=== PATIENT | male | born 1970 | race Caucasian/White ===

== ENCOUNTER 2016-09-25 10:20 | Day surgery (SDC) | payer BC ==
[~2016-09-25 10:20] MED LIST: PROPOFOL INJ 200 MG/20 ML VIAL IV ONE
[2016-09-25] MEDS ORDERED: PROPOFOL INJ 200 MG/20 ML VIAL IV ONE (11:13)
[2016-09-25 12:06] VITALS: BP 123/80
--- NOTE | 2016-09-25 12:21 | Operative Report ---
Operative Report DATE OF SURGERY: 09/25/16 Operative Report: The risks, benefits and alternatives of the procedure including risks of bleeding, perforation requiring surgery are explained to the patient detail and informed consent is obtained. Patient is brought back to the endoscopy suite. He is placed in a left lateral decubital position. Timeout is called. Propofol medications administered. A rectal examination was done which did not reveal any masses, tears or fissures. An Olympus video scope was inserted into the patient's rectum. The scope was then carefully advanced all the way to the cecum. The cecum as identified by the usual anatomical landmarks of the ileocecal valve as well as the appendiceal office. Photodocumentation is obtained. Prep is good. Scope was then sequentially pulled back via the various segments of the colon including the ascending colon, hepatic flexure, transverse colon, splenic flexure, descending colon and finally into the rectosigmoid portions of the colon. Retroflexion maneuvers performed. Following this patient's stretcher was turned around and an EGD is performed. The risks benefits and alternatives of the procedure explained to the patient in detail and informed consent is obtained that GIF Olympus video scope was inserted into the patient's mouth and hypopharynx the esophagus is identified intubated and insufflated the scope was then advanced through the esophagus stomach and duodenum retroflexion maneuver is done the esophagus stomach and first and second portions of the duodenum examined PREOPERATIVE DIAGNOSIS: Personal history of polyp. Gastroesophageal reflux disease POSTOPERATIVE DIAGNOSIS: Diverticulosis. Internal hemorrhoids. Le's esophagus that required ablation. Duodenitis. Gastritis status post biopsy rule out Helicobacter pylori OPERATION: EGD with ablation. EGD with biopsy. Colonoscopy diagnostic SURGEON: JACOB IRVIN ANESTHESIA: LMAC TISSUE REMOVED OR ALTERED: Gastric specimen obtained rule out Helicobacter pylori COMPLICATIONS: None. ESTIMATED BLOOD LOSS: none. INTRAOPERATIVE FINDINGS: Short segment Le's esophagus status post ablation. Gastritis. Duodenitis. Diverticulosis. Internal hemorrhoids PROCEDURE: Patient tolerated procedure well. No immediate postprocedure complications are noted. Patient is discharged in good condition. Discharge date 09/25/2016. Discharge diet: Regular. Discharge activity: Regular. Patient is instructed to call the office or proceed to the emergency room should there be any further problems or questions. Patient does have a 2-3 week follow-up to discuss findings. Surveillance colonoscopy in 5 years. High-fiber diet for his diverticulosis to reduce the risk of diverticulitis. [id number] medications for his internal hemorrhoids. Surveillance EGD needed in 1 year We'll await biopsies treat for Helicobacter pylori if necessary.
== END 2016-09-25 12:20 | disposition home or self-care (01) ==
LOC: END 10:20
PROVIDERS: ATTEND Internal Medicine Gastroenterology
PROC: 0DB68ZX Excision of Stomach, Via Natural or Artificial Opening Endoscopic, Diagnostic (ICD-10-PCS; principal; 2016-09-25 13:30)
PROC: 0D558ZZ Destruction of Esophagus, Via Natural or Artificial Opening Endoscopic (ICD-10-PCS; 2016-09-25 13:30)
PROC: 0DJD8ZZ Inspection of Lower Intestinal Tract, Via Natural or Artificial Opening Endoscopic (ICD-10-PCS; 2016-09-25 13:30)
DX: K22.70 Barrett's esophagus without dysplasia (principal); K29.80 Duodenitis without bleeding; K29.50 Unspecified chronic gastritis without bleeding; K21.9 Gastro-esophageal reflux disease without esophagitis; K57.30 Diverticulosis of large intestine without perforation or abscess without bleeding; K64.8 Other hemorrhoids; Z86.010 Personal history of colon polyps; Z79.899 Other long term (current) drug therapy
CPT/HCPCS: 43270; 43239; 45378; 88342 ×2; 88305 ×2; J2704; 740

== ENCOUNTER 2016-12-05 18:01 | Emergency (ER) | payer BC ==
[2016-12-05] MEDS ORDERED: PROMETHAZINE HCL 25 MG TABLET PO ONE (18:22)
[2016-12-05] MEDS ORDERED: NORMAL SALINE 1000 ML 1,000 ML IV PRN (18:22)
[2016-12-05] MEDS ORDERED: ONDANSETRON HCL INJ/PF 4 MG/2 ML SDV IV ONE (18:22)
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
[2016-12-05 19:05] LABS: PROTHROMBIN TIME 14.2 SEC (11.4-15.4)
[2016-12-05 19:07] LABS: ABSOLUTE LYMPHOCYTES (AUTO) 1.2 10^3/uL (0.5-4.7); ABSOLUTE MONOCYTES (AUTO) 0.8 10^3/uL (0.1-1.4); ABSOLUTE NEUT (AUTO) 2.4 10^3/uL (1.7-8.2); BASOPHILS % (AUTO) 0.6 % (0-2); EOSINOPHILS % (AUTO) 0.1 % (0-6); HEMATOCRIT 41.7 % (37.9-51.0); HEMOGLOBIN 14.6 g/dL (13.5-17.0); HGB HCT DIFFERENCE 2.1; LYMPHOCYTES % (AUTO) 27.2 % (13-45); MEAN CORPUSCULAR VOLUME 94 fl (80-97); RED BLOOD COUNT 4.43 10^6/uL (4.35-5.55); RED CELL DISTRIBUTION WIDTH 14.9 % (11.5-14.0); SEGMENTED NEUTROPHILS % (AUTO) 53.1 % (42-78); WHITE BLOOD COUNT 4.5 10^3/uL (4.0-10.5)
[2016-12-05 19:22] LABS: ALANINE AMINOTRANSFERASE 47 U/L (21-72); ALBUMIN 4.9 g/dL (3.5-5.0); ALKALINE PHOSPHATASE 70 U/L (38-126); ANION GAP 19 (5-19); ASPARTATE AMINO TRANSFERASE 54 U/L (17-59); BILIRUBIN,DIRECT 0.4 mg/dL (0.0-0.4); BILIRUBIN,TOTAL 0.8 mg/dL (0.2-1.3); BLOOD UREA NITROGEN 23 mg/dL (7-20); CALCIUM 10.2 mg/dL (8.4-10.2); CARBON DIOXIDE 24 mmol/L (22-30); CHLORIDE 99 mmol/L (98-107); CREATINE KINASE 129 U/L (55-170); CREATININE RESULT 1.19 mg/dL (0.52-1.25); GLUCOSE 85 mg/dL (75-110); POTASSIUM 3.7 mmol/L (3.6-5.0); SODIUM 142.4 mmol/L (137-145); TOTAL PROTEIN 8.4 g/dL (6.3-8.2)
[2016-12-05 19:34] LABS: CREATINE KINASE MB 5.65 ng/mL (<4.55)
[2016-12-05 19:39] LABS: TROPONIN I 1.32 ng/mL
[2016-12-05] MEDS ORDERED: HEPARIN SOD (PORCINE) 1,000 UNIT/ML 10 ML VIAL IV PRN (21:07)
[2016-12-05] MEDS ORDERED: HEPARIN SODIUM,PORCINE/D5W 250 ML IV PRN (21:07)
[2016-12-05] MEDS ORDERED: HEPARIN SOD (PORCINE) 1,000 UNIT/ML 10 ML VIAL IV ONE (21:07)
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
[2016-12-05] MEDS ORDERED: ATORVASTATIN CALCIUM 80 MG TABLET PO ONE (21:29)
[2016-12-05] MEDS ORDERED: ASPIRIN 325 MG TABLET PO ONE (21:29)
[2016-12-05] MEDS ORDERED: ACETAMINOPHEN 325 MG TABLET PO ONE (22:22)
[2016-12-05 22:36] VITALS: BP 130/84
--- NOTE | 2016-12-06 08:18 | EKG REPORT ---
SEVERITY:- OTHERWISE NORMAL ECG - SINUS TACHYCARDIA : Confirmed by: Reymundo Medina MD 06-Dec-2016 08:18:06
== END 2016-12-05 23:39 | disposition short-term general hospital (02) ==
LOC: ER 18:01
DX: I21.4 Non-ST elevation (NSTEMI) myocardial infarction (principal); R00.0 Tachycardia, unspecified; R50.81 Fever presenting with conditions classified elsewhere; R06.02 Shortness of breath; R07.9 Chest pain, unspecified
CPT/HCPCS: 93005; 96376; 99291; 96361; 96375; 96365; 96366; 36415; 82553; 82550; 85025; 85610; 80053; 84484; 71010; 71275; 93010; J1644 ×2; J2405; J7030

== ENCOUNTER → 2017-08-30 | Outpatient (CLI) | payer BC ==
--- NOTE | 2017-08-30 17:00 | RADIOLOGY REPORT (SQ) ---
EXAM DESCRIPTION: KNEE LEFT 4 VIEWS COMPLETED DATE/TIME: 08/30/2017 4:53 pm REASON FOR STUDY: PAIN IN LEFT KNEE M25.562 PAIN IN LEFT KNEE COMPARISON: None. NUMBER OF VIEWS: Four views. TECHNIQUE: AP, lateral, and both oblique radiographic images acquired of the left knee. LIMITATIONS: None. FINDINGS: MINERALIZATION: Normal. BONES: No acute fracture or dislocation. No worrisome bone lesions. JOINT: No effusion. SOFT TISSUES: No soft tissue swelling. No radio-opaque foreign body. OTHER: No other significant finding. IMPRESSION: NEGATIVE STUDY OF THE LEFT KNEE. NO RADIOGRAPHIC EVIDENCE OF ACUTE INJURY. TECHNICAL DOCUMENTATION: JOB ID: [id number] [employer]- All Rights Reserved
== END ==
LOC: OD 16:30
PROVIDERS: ATTEND Family Medicine
DX: M25.562 Pain in left knee (principal)

== ENCOUNTER → 2019-02-21 | Outpatient (CLI) | payer OTHER ==
[2019-02-21 10:06] LABS: HEMATOCRIT 42.1 % (37.9-51.0); HEMOGLOBIN 14.3 g/dL (13.5-17.0); MEAN CORPUSCULAR HEMOGLOBIN 32.4 pg (27.0-33.4); MEAN CORPUSCULAR HGB CONC 33.9 g/dL (32.0-36.0); MEAN CORPUSCULAR VOLUME 96 fl (80-97); PLATELET COUNT 252 10^3/uL (150-450); RED BLOOD COUNT 4.41 10^6/uL (4.35-5.55); RED CELL DISTRIBUTION WIDTH 14.7 % (11.5-14.0); WHITE BLOOD COUNT 5.8 10^3/uL (4.0-10.5)
[2019-02-21 10:31] LABS: ANION GAP 10 (5-19); BLOOD UREA NITROGEN 20 mg/dL (7-20); CALCIUM 9.3 mg/dL (8.4-10.2); CARBON DIOXIDE 26 mmol/L (22-30); CHLORIDE 104 mmol/L (98-107); GLUCOSE 86 mg/dL (75-110); POTASSIUM 4.2 mmol/L (3.6-5.0); SODIUM 140.3 mmol/L (137-145)
--- NOTE | 2019-02-21 13:46 | EKG REPORT ---
SEVERITY:- NORMAL ECG - SINUS RHYTHM : Confirmed by: Reymundo Medina MD 21-Feb-2019 13:46:04
== END ==
LOC: OD 09:02
PROVIDERS: ATTEND Surgery
DX: Z01.818 Encounter for other preprocedural examination (principal); K64.2 Third degree hemorrhoids; Z86.010 Personal history of colon polyps; K22.70 Barrett's esophagus without dysplasia; K58.9 Irritable bowel syndrome, unspecified; G25.81 Restless legs syndrome; G44.009 Cluster headache syndrome, unspecified, not intractable
CPT/HCPCS: 36415; 80048; 85027; 93005; 93010

== ENCOUNTER 2019-06-06 12:40 | Day surgery (SDC) | payer OTHER ==
[2019-06-02 13:30] LABS: ABSOLUTE EOSINOPHILS # (AUTO) 0.1 10^3/uL (0.0-0.6); ABSOLUTE MONOCYTES (AUTO) 0.7 10^3/uL (0.1-1.4); ABSOLUTE NEUT (AUTO) 3.9 10^3/uL (1.7-8.2); BASOPHILS % (AUTO) 0.7 % (0-2); EOSINOPHILS % (AUTO) 1.7 % (0-6); HEMATOCRIT 39.4 % (37.9-51.0); HEMOGLOBIN 13.3 g/dL (13.5-17.0); LYMPHOCYTES % (AUTO) 29.4 % (13-45); MEAN CORPUSCULAR HEMOGLOBIN 31.8 pg (27.0-33.4); MEAN CORPUSCULAR HGB CONC 33.7 g/dL (32.0-36.0); MEAN CORPUSCULAR VOLUME 95 fl (80-97); MONOCYTES % (AUTO) 10.8 % (3-13); PLATELET COUNT 252 10^3/uL (150-450); RED BLOOD COUNT 4.17 10^6/uL (4.35-5.55); RED CELL DISTRIBUTION WIDTH 14.6 % (11.5-14.0); SEGMENTED NEUTROPHILS % (AUTO) 57.4 % (42-78); TOTAL CELLS COUNTED % (AUTO) 100 %; WHITE BLOOD COUNT 6.8 10^3/uL (4.0-10.5)
[2019-06-02 14:00] LABS: ANION GAP 6 (5-19); BLOOD UREA NITROGEN 15 mg/dL (7-20); CALCIUM 9.6 mg/dL (8.4-10.2); CARBON DIOXIDE 32 mmol/L (22-30); CHLORIDE 103 mmol/L (98-107); GLUCOSE 81 mg/dL (75-110); POTASSIUM 4.7 mmol/L (3.6-5.0)
[~2019-06-06 12:40] MED LIST changes: +ACETAMINOPHEN 1,000 MG/100 ML RTUPB IV ONE; +ACETAMINOPHEN 1,000 MG/100 ML RTUPB IV PRN; +IBUPROFEN 800 MG in NORMAL SALINE 250 ML IV PRN; +LACTATED RINGERS 1000 ML IV PRN; +LIDOCAINE 0.5% INJ-PF (5 MG/ML) 50 ML SDV SUBCUT PRN; +METRONIDAZOLE 500 MG/NS RTU 500 MG/100 ML RTUPB IV ONE; +METRONIDAZOLE 500 MG/NS RTU 500 MG/100 ML RTUPB IV PRN; -PROPOFOL INJ 200 MG/20 ML VIAL IV ONE
[2019-06-06] MEDS ORDERED: FAMOTIDINE INJ/PF 20 MG/2 ML SDV IV ONE ×2 (14:28→14:41)
[2019-06-06] MEDS ORDERED: MIDAZOLAM 2 MG/2 ML INJ ONE ×2 (14:28→15:46)
[2019-06-06] MEDS ORDERED: MIDAZOLAM 2 MG/2 ML INJ IV ONE (14:41)
[2019-06-06] MEDS ORDERED: HYDROMORPHONE HCL INJ/PF 2 MG/ML AMPULE ONE (15:13)
[2019-06-06] MEDS ORDERED: HYDROMORPHONE HCL INJ/PF 2 MG/ML AMPULE INJ ONE (15:15)
[2019-06-06] MEDS ORDERED: RINGERS SOLUTION,LACTATED 1,000 ML IV ONE (15:30)
[2019-06-06] MEDS ORDERED: PROPOFOL INJ 200 MG/20 ML VIAL IV ONE (15:46)
[2019-06-06] MEDS ORDERED: ONDANSETRON HCL INJ/PF 4 MG/2 ML SDV ONE (15:46)
[2019-06-06] MEDS ORDERED: FENTANYL CITRATE INJ/PF 100 MCG/2 ML AMPUL ONE (15:46)
[2019-06-06] MEDS ORDERED: DIPHENHYDRAMINE HCL 50 MG/ML VIAL IV PRN (16:17)
[2019-06-06] MEDS ORDERED: MORPHINE SULFATE 10 MG/ML INJ IV PRN (16:17)
[2019-06-06] MEDS ORDERED: MEPERIDINE HCL/PF INJ 25 MG/1 ML DISP.SYRIN IV PRN (16:17)
[2019-06-06] MEDS ORDERED: PROMETHAZINE HCL INJ 25 MG/1 ML VIAL IV PRN (16:17)
[2019-06-06] MEDS ORDERED: FENTANYL CITRATE INJ/PF 100 MCG/2 ML AMPUL IV PRN ×3 (16:17)
[2019-06-06] MEDS ORDERED: BACITRACIN ZINC OINTMENT 15 GM ONE (16:29)
[2019-06-06] MEDS ORDERED: LIDOCAINE 2% JELLY 5 ML TUBE ONE (16:29)
[2019-06-06] MEDS ORDERED: BUPIVACAINE INJ/PF LIPOSOME/PF 266 MG/20 ML SDV ONE (16:29)
--- NOTE | 2019-06-06 18:15 | EKG REPORT ---
SEVERITY:- NORMAL ECG - SINUS RHYTHM : Confirmed by: Reymundo Medina MD 06-Jun-2019 18:14:05
[2019-06-06 18:31] VITALS: BP 100/51
--- NOTE | 2019-06-10 09:22 | Discharge Summary ---
Discharge Summary (SDC) - Discharge Final Diagnosis: #1 internal hemorrhoids. #2 posterior anorectal fistula. Date of Surgery: 06/06/19 Discharge Date: 06/06/19 Condition: Stable Forms: ASU Anesthesia D/C Instruction, Discharge POC-Surgical Service Treatment or Instructions: Discharge home. Diet as tolerated. Activity: Nonstrenuous. Follow-up with me in 7 to 10 days. Warm sits baths with soapy water twice daily and after bowel movements. 5% lidocaine ointment/cream to rectum 3 times daily. [place] 10/325 mg p.o. every 6 hours as needed for pain. Fiber and stool softeners twice da barb. Referrals: FRANC FRANCES MD [ACTIVE STAFF] - 06/18/19 11:00 am KHALIDA HUNTER DO [Primary Care Provider] - Discharge Diet: As Tolerated Respiratory Treatments at Home: Deep Breathing/Coughing, Incentive Spirometer Discharge Activity: Balance Activity w/Rest Home Care Assistance: None Needed Report the Following to Your Physician Immediately: Shortness of Breath, Nausea, Vomiting, Increase in Pain, Fever over 101 Degrees, Unusual Bleeding, Redness, Swelling, Warmth, Wheezing, Seizure, IV Site Infection Signs, Urinary Infection Signs
--- NOTE | 2019-06-10 11:09 | Operative Report ---
Nonrecallable Operative Report DATE OF SURGERY: 06/06/19 PREOPERATIVE DIAGNOSIS: Rectal pain and rectal bleeding POSTOPERATIVE DIAGNOSIS: 1. Enlarged internal hemorrhoids, especially in the right anterior position. 2. Small, posterior anorectal fistula OPERATION: 1. Rubber band ligation of internal hemorrhoids. 2. Fistulectomy of small, posterior anorectal fistula SURGEON: FRANC EVANS [employer] DEVELOPER: LILIANE GORMAN ANESTHESIA: GA TISSUE REMOVED OR ALTERED: None COMPLICATIONS: None apparent ESTIMATED BLOOD LOSS: Minimal PROCEDURE: Drains/implants: None. Procedure in detail: After informed consent was obtained, the patient was brought into the operating room and laid in the prone jackknife position. The area of the anus and rectum were prepped and draped in a normal sterile fashion. An anal block was created with Exparel. After this was completed, a Marshall- Sae retractor was inserted into the rectum and inspection was undertaken. There was a small fistulous connection in the left posterior position. A lacrimal probe was used to delineate the fistula tract. The fistula tract appeared to traverse exterior to the sphincter complex. In light of this, fistulectomy would be appropriate. The fistula tract was laid open, and the base was cauterized. Next, attention was turned to investigation for internal hemorrhoids. The patient did have internal hemorrhoidal swelling, specifically in the right anterior position. 3 nonlatex bands were used to ligate internal hemorrhoids. Once this was completed, the procedure was concluded. All sponge, instrument, and needle counts were correct x2. Condition: Stable. Liliane Gorman PA-C was scrubbed and present the entirety the procedure. She assisted with all portions of the procedure including retraction, laying open of the fistula tract, placement of the rubber bands, placement of the dressing.
== END 2019-06-06 18:30 | disposition home or self-care (01) ==
LOC: OROUT 12:40
PROVIDERS: ATTEND Surgery
DX: K64.8 Other hemorrhoids (principal); K60.5 Anorectal fistula; K62.5 Hemorrhage of anus and rectum
CPT/HCPCS: 36415; 85025; 80048; 93005; 93010; 00902; 46270; 46221; J2250; J3490 ×2; J3010; J1170; J2405; J7050; J2704; S0028; J0131; C9290; J1741; 902